=== PATIENT | female | born 1965 | race Caucasian/White ===

== ENCOUNTER 2017-01-21 10:02 | Emergency (ER) | payer SELFPAY ==
[2017-01-21 10:10] VITALS: PULSE 64; TEMP 98.2; BMI 34.4
[2017-01-21] MEDS ORDERED: TOBRAMYCIN 0.3% OPHTH SOLN 5 ML BOTTLE OD ONE (11:04)
--- NOTE | 2017-01-21 11:09 | PDOC ---
History of Present Illness - General Chief Complaint: Eye Problem Stated Complaint: EYE IRRITATION Time Seen by Provider: 01/21/17 11:03 History Source: Patient Exam Limitations: No Limitations - History of Present Illness Initial Comments: 01/21/17 11:03 Patient came for evaluation of right eye injection and some thin drainage this morning. Denies trauma, denies visual changes or pain, denies any known exposure to anyone with conjunctivitis. 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 Timing/Duration: unsure Severity: mild Associated Symptoms: reports: denies symptoms Past History - Travel Traveled outside of the country in the last 30 days: No Close contact w/someone who was outside of country & ill: No - Past Medical History Allergies/Adverse Reactions: Allergies Allergy/AdvReac Type Severity Reaction Status Date / Time pyrvinium Allergy Verified 01/21/17 10:10 Home Medications: Ambulatory Orders NK [No Known Home Medication] 01/21/17 HTN: Yes (stopped taking meds October 2016) - Suicide/Smoking/Psychosocial Hx Smoking History: Never smoked Information on smoking cessation initiated: No Hx Alcohol Use: No Drug/Substance Use Hx: No Substance Use Type: None Review of Systems - Review of Systems Able to Perform ROS?: Yes Is the patient limited Romanian proficient: Yes Constitutional: Yes: Symptoms Reported, See HPI, Chills. No: Fever, Loss of Appetite, Malaise HEENTM: Yes: Symptoms Reported, See HPI, Tearing, Other (redness and tearing). No: Eye Pain, Blurred Vision Respiratory: Yes: See HPI. No: Symptoms reported, Cough, Orthopnea Cardiac (ROS): Yes: See HPI. No: Symptoms Reported Musculoskeletal: Yes: Symptoms Reported Integumentary: No: Symptoms Reported Neurological: Yes: See HPI. No: Symptoms reported, Headache, Numbness, Paresthesia All Other Systems: Reviewed and Negative *Physical Exam - Vital Signs Last Vital Signs Temp Pulse Resp BP Pulse Ox 98.2 F 64 18 184/97 98 01/21/17 10:05 01/21/17 10:05 01/21/17 10:05 01/21/17 10:05 01/21/17 10:05 - Physical Exam General Appearance: Yes: Nourished, Appropriately Dressed, Apparent Distress, Mild Distress HEENT: positive: EDELMIRA, Normal ENT Inspection, Normal Voice, TMs Normal, Pharynx Normal, Other (injected, with erythematous conjunctiva. Pupil intact, negative EOM, no photophobia or evidence of corneal defect ) Neck: positive: Supple. 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 NML intact, Fully Oriented, Alert, Normal Mood/ Affect, Normal Response, Motor Strength 5/5 *DC/Admit/Observation/Transfer Diagnosis at time of Disposition: Acute bacterial conjunctivitis Qualifiers: Laterality: right Qualified Code(s): H10.31 - Unspecified acute conjunctivitis , right eye - Discharge Dispostion Disposition: HOME Condition at time of disposition: Stable Admit: No - Patient Instructions Printed Discharge Instructions: DI for Conjunctivitis Additional Instructions: Rest, avoid rubbing eyes Wash hands frequently as this is very contagious Wash hands, use eye drops as directed, wash hands after use TobraMyosin drops, 2 drops to affected eye 4 times a day for 5 days Do not share eyedrops with other person to may become infected as this will infect them Avoid contact with others until redness and discharge is gone from eyes. Followup with ophthalmology or private physician as needed - Post Discharge Activity Forms/Work/School Notes: Back to Work
[2017-01-21 11:25] VITALS: BP 180/80
== END 2017-01-21 11:25 | disposition home or self-care (01) ==
LOC: JERFT 10:02
DX: H10.31 Unspecified acute conjunctivitis, right eye (principal)
CPT/HCPCS: 99281-25